=== PATIENT | female | born 1980 | race Caucasian/White ===

== ENCOUNTER → 2018-09-11 | Outpatient (CLI) | payer BC ==
[2006-03-15 07:15] VITALS: PULSE 89; TEMP 97.1
== END ==
LOC: COL.RAD 12:44
DX: E04.1 Nontoxic single thyroid nodule (principal)

== ENCOUNTER → 2022-01-24 | Outpatient (CLI) | payer OTHER ==
[2006-03-15 07:15] VITALS: PULSE 89; TEMP 97.1
== END ==
LOC: COL.RAD 11:25
DX: E04.9 Nontoxic goiter, unspecified (principal)